=== PATIENT | female | born 1960 | race American Indian/Alaskan Native ===

== ENCOUNTER 2020-02-27 08:52 | Emergency (ER) | payer BC ==
[2020-02-27 09:20] LABS: Urine Blood 1+ (NEG); Urine Glucose NEGATIVE (NEG); Urine Protein TRACE (NEG); Urine Specific Gravity 1.025 (1.005-1.030)
[2020-02-27 09:48] LABS: Absolute Lymphocytes (CBC) 1.2 K/uL (0.7-4.9); Basophils % 0.6 % (0-1.3); Hematocrit 42.8 % (36.0-45.0); Lymphocytes % 14.7 % (15.3-44.8); MPV 8.1 fL (7.6-11.3); RBC Red Blood Cell Count 5.11 M/uL (3.86-4.86)
[2020-02-27] MEDS ORDERED: NA CHLORIDE 0.9% 1,000 ML ONE (09:56)
[2020-02-27 10:06] LABS: ALT/SGPT 25 U/L (12-78); AST/SGOT 21 U/L (15-37); Albumin 4.4 g/dL (3.4-5.0); Alkaline Phosphatase 107 U/L (45-117); BUN Blood Urea Nitrogen 7 mg/dL (7-18); Bicarbonate 26 mmol/L (21-32); Bilirubin Direct 0.2 mg/dL (0-0.2); Bilirubin Total 0.7 mg/dL (0.2-1.0); Glucose Level 153 mg/dL (74-106); Lipase 199 U/L (73-393); Magnesium 1.8 mg/dL (1.8-2.4); NT PRO-BNP 201 pg/mL (<125); Potassium 3.5 mmol/L (3.5-5.1); Protein, Total 8.3 g/dL (6.4-8.2); Sodium Level 137 mmol/L (136-145); Troponin (Emerg Dept Use Only) < 0.02 ng/mL (0.0-0.045)
[2020-02-27] MEDS ORDERED: NA CHLORIDE 0.9% 500 ML ONE (10:35)
--- NOTE | 2020-02-27 11:03 | RAD REPORT ---
EXAM DESCRIPTION: CT - Angio Aorta For Dissection - 02/27/2020 10:33 am CLINICAL HISTORY: . Chest and abdominal pain COMPARISON: None TECHNIQUE: Computed tomography angiography of the chest, abdomen pelvis were obtained. 100 cc Isovue 370 was administered intravenously. Coronal and sagittal reconstruction were performed. MIP 3D reconstruction was performed All CT scans are performed using dose optimization technique as appropriate and may include automated exposure control or mA/KV adjustment according to patient size. FINDINGS: An aortic dissection is not seen. An aortic aneurysm is not displayed. Mild narrowing of the celiac artery. Moderate narrowing involves the proximal superior mesenteric art gina. The AIDA is patent. A lung consolidation is not present. A pericardial effusion is not seen. A pleural effusion is not n oted. 6 x 4 millimeter ground-glass opacity medial left lower lobe Large gallstones. The liver,spleen, pancreas adrenals kidneys demonstrate no significant abnormality. Spondylosis involves lumbar spine resulting spinal stenosis. There no evidence diverticulitis. 3.5 centimeter apparent soft tissue structure splenic flexure of the colon IMPRESSION: Negative for an aortic dissection. Cholelithiasis 6 x 4 millimeter ground-glass opacity medial left lower lobe. If the patient is high risk then a foll owup CT chest in 6 months would be recommended for re-evaluation 3.5 centimeter apparent soft tissue structure splenic flexure of the colon. This could represent a ma ss or pseudo mass secondary to incomplete distention. Colonoscopy recommended
--- NOTE | 2020-02-27 11:14 | RAD REPORT ---
EXAM DESCRIPTION: [facility] Single View02/27/2020 9:46 am CLINICAL HISTORY: Cough FINDINGS: The small ground-glass opacity within the left lung seen on a CT scan of the same date is not visualized on this exam. Please refer to CT report for recommendation The lungs appear clear of acute infiltrate. The heart is normal size
[2020-02-27] MEDS ORDERED: FAMOTIDINE 20 MG/2 ML VIAL IV ONE (12:05)
[2020-02-27] MEDS ORDERED: dexAMETHasone 4 MG/ML VIAL ONE (12:05)
--- NOTE | 2020-02-27 12:46 | RAD REPORT ---
EXAM DESCRIPTION: US - Abdomen Exam Limited - 02/27/2020 12:33 pm CLINICAL HISTORY: Abdominal pain. COMPARISON: 02/27/2020 FINDINGS: The gallbladder wall is not thickened. Multiple gallstones. The largest is 3 cm. The common bile duct measures 8 mm. IMPRESSION: Cholelithiasis.No evidence of cholecystitis Mild dilation of the common bile duct
--- NOTE | 2020-02-27 12:48 | ER ---
Nurse's Notes [facility] Name: Venecia Russo Age: 59 yrs Sex: Female : 1960 Arrival Date: 02/27/2020 Time: 08:54 Bed 15 Private MD: Temo Cuellar V Diagnosis: Other viral pneumonia-medial left lower lobe;Diarrhea, unspecified;Cholelithiasis Presentation: 02/26 10:04 Chief complaint: Patient states: Patient reports back pain that started this prior ae4 Saturday along with loose stool and a wave a nausea. Coronavirus screen: Client denies travel out of the [place] in the last 14 days. Client presents with at least one sign or symptom that may indicate coronavirus-19. Standard/surgical mask placed on the client. Ebola Screen: Patient negative for fever greater than or equal to 101.5 degrees Fahrenheit, and additional compatible Ebola Virus Disease symptoms Patient denies travel to an Ebola-affected area in the 21 days before illness onset. Initial Sepsis Screen: Does the patient meet any 2 criteria? No. Patient's initial sepsis screen is negative. Does the patient have a suspected source of infection? No. Patient's initial sepsis screen is negative. Risk Assessment: Do you want to hurt yourself or someone else? Patient reports no desire to harm self or others. Onset of symptoms was February 24, 2020. 10:04 Acuity: PRINCE 3 ae4 10:04 Method Of Arrival: Ambulatory ae4 Triage Assessment: 10:04 General: Appears in no apparent distress. uncomfortable, Behavior is cooperative, ae4 anxious. Pain: Complains of pain in right subscapular area and right mid back Pain. EENT: No signs and/or symptoms were reported regarding the EENT system. Neuro: Level of Consciousness is awake, alert, obeys commands, Oriented to person, place, time, situation, Appropriate for age. Cardiovascular: Patient's skin is warm and dry. Respiratory: Airway is patent Respiratory effort is even, unlabored, Respiratory pattern is regular, symmetrical. Musculoskeletal: Historical: - Allergies: 10:03 No Known Allergies; ae4 - Immunization history:: Adult Immunizations up to date. - Family history:: not pertinent. - Social history:: Smoking status: Patient denies any tobacco usage or history of. Screenin:17 Abuse screen: Denies threats or abuse. Nutritional screening: No deficits noted. ae4 Tuberculosis screening: No symptoms or risk factors identified. Fall Risk None identified. Assessment: 09:50 General: Appears comfortable, Behavior is cooperative, anxious. Pain: Complains of pain ae4 in right mid back Pain radiates to right lateral anterior chest. Neuro: Level of Consciousness is awake, alert, obeys commands, Oriented to person, place, time, situation, Appropriate for age. Cardiovascular: Heart tones S1 S2 present Patient's skin is warm and dry. Rhythm is regular. Respiratory: Airway is patent Respiratory effort is even, unlabored, Respiratory pattern is regular, symmetrical. GI: Abdomen is round Bowel sounds present X 4 quads. : No signs and/or symptoms were reported regarding the genitourinary system. Urine is clear. EENT: No signs and/or symptoms were reported regarding the EENT system. Derm: No signs and/or symptoms reported regarding the dermatologic system. Musculoskeletal: Reports pain in right mid back. 09:57 Reassessment: Pt resting in bed at this time, respirations remain even and unlabored. ss Call light within reach. Lights dimmed for comfort. at bedside. 15:40 Reassessment: Patient is alert, oriented x 3, equal unlabored respirations, skin aa5 warm/dry/pink. Vital Signs: 09:22 BP 173 / 99; Pulse 80; Resp 15; Temp 98.6(O); Pulse Ox 100% on R/A; Weight 58.97 kg; mh5 Height 5 ft. 5 in. (165.10 cm); Pain 8/10; 10:04 BP 187 / 97; Pulse 71; Resp 16; Pulse Ox 100% on R/A; ae4 10:04 BP 184 / 97; Pulse 74; Resp 15; Pulse Ox 100% on R/A; ae4 11:00 BP 178 / 102; Pulse 70; Resp 16; Pulse Ox 99% on R/A; ae4 12:20 BP 171 / 95; Pulse 72; Resp 18; Pulse Ox 100% on R/A; ae4 14:00 BP 165 / 101; Pulse 87; Resp 16; Pulse Ox 99% on R/A; ae4 14:41 BP 183 / 109; Pulse 81; Resp 17; Pulse Ox 100% on R/A; ae4 15:30 BP 155 / 94; Pulse 80; Resp 16 S; Pulse Ox 100% on R/A; aa5 09:22 Body Mass Index 21.63 (58.97 kg, 165.10 cm) 5 ED Course: 08:54 Patient arrived in ED. as 08:54 Temo Cuellar MD is Private Physician. as 09:01 Sajan Chow MD is Attending Physician. radha 09:11 Konrad Cordon, RN is Primary Nurse. ae4 09:23 Patient has correct armband on for positive identification. Placed in gown. Bed in low mh5 position. Side rails up X 1. Adult w/ patient. Warm blanket given. inspector multifocal lens on. Pulse ox on. NIBP on. 09:36 CT Aorta for Dissection In Process Unspecified. EDMS 09:38 Urine Culture Sent. mh5 09:40 Inserted saline lock: 20 gauge in left antecubital area, using aseptic technique. Blood ae4 collected. 09:46 XRAY Chest (1 view) In Process Unspecified. EDMS 10:07 COVID-19 Sent. mh5 10:08 Initial lab(s) drawn, by ED staff, sent to lab. Urine collected: clean catch specimen, [facility] clear, EKG done, by ED staff, reviewed by Sajan Chow MD COVID 19 TEST. 10:11 Triage completed. ae4 10:16 Arm band placed on right wrist. EKG completed in triage. Results shown to MD. ae4 10:[address] via stretcher. ae4 12:33 US Abdomen Limited In Process Unspecified. EDMS 12:47 Temo Cuellar MD is Referral Physician. radha 12:48 Baron Rojas MD is Referral Physician. radha 15:40 No provider procedures requiring assistance completed. IV discontinued. aa5 Administered Medications: 09:47 Drug: NS 0.9% 1000 ml Route: IV; Rate: 1 bolus; Site: left antecubital; ae4 11:33 Follow up: IV Status: Completed infusion; IV Intake: 1000ml ae4 10:57 Drug: NS 0.9% 500 ml Route: IV; Rate: bolus; Site: left antecubital; ae4 11:47 Follow up: IV Status: Completed infusion; IV Intake: 500ml ae4 14:17 Drug: Zithromax 500 mg Route: IVPB; Infused Over: 1 hrs; Site: left antecubital; iw 15:30 Follow up: Response: No adverse reaction; IV Status: Completed infusion aa5 14:37 Drug: Pepcid 20 mg Route: IVP; Site: left antecubital; ae4 14:41 Follow up: Response: No adverse reaction ae4 14:38 Drug: Decadron - Dexamethasone 6 mg Route: IVP; Site: left antecubital; ae4 14:41 Follow up: Response: No adverse reaction ae4 14:41 Drug: Aspirin Chewable Tablet 81 mg Route: PO; ae4 Intake: 11:33 IV: 1000ml; Total: 1000ml. ae4 11:47 IV: 500ml; Total: 1500ml. ae4 Outcome: 12:48 Discharge ordered by . radha 15:40 Discharged to home ambulatory, with significant other. aa5 15:40 Condition: stable 15:40 Discharge instructions given to patient, Instructed on discharge instructions, follow up and referral plans. medication usage, Demonstrated understanding of instructions, follow-up care, medications. 15:46 Patient left the ED. aa5 Addendum: 02/29/2020 13:14 Addendum: COVID-19 Result: Negative result given to RN to notify pt. Left voice mail. h b 14:29 Addendum: COVID-19 Result: Negative result given to RN to notify pt. Notified pt of h b negative COVID 19 swab results. Pt advised that even with a negative test result they should remain in isolation until symptom free for 3 days without medication. Pt also advised to return to the ED for worsening symptoms. Signatures: Dispatcher [employer] EDRI Sajan Chow MD MD cha Martinez, Amelia as Williams, Irene, RN RN iw Calderon, Audri, RN RN aa5 Yajaira Washington RN RN ss Baxter, Heather, RN RN hb Martinez, Maria Konrad Lou RN RN ae4
--- NOTE | 2020-02-27 12:48 | EDPHYS ---
Physician Documentation [facility] Name: Venecia Russo Age: 59 yrs Sex: Female : 1960 Arrival Date: 02/27/2020 Time: 08:54 Bed 15 Private MD: Temo Cuellar V ED Physician Sajan Chow HPI: 02/26 09:21 This 59 yrs old Unknown Female presents to ER via Unassigned with complaints of Back radha Pain. 09:21 The patient presents with pain and decreased range of motion. The symptoms are located radha in the right subscapular area, right mid back and right low back. Onset: The symptoms/episode began/occurred 2 day(s) ago. The pain does not radiate. Associated signs and symptoms: Pertinent positives: nausea. The problem was sustained from unknown cause. Severity of symptoms: At their worst the symptoms were mild, in the emergency department the symptoms are unchanged. The patient has not experienced similar symptoms in the past. Historical: - Allergies: 10:03 No Known Allergies; ae4 - Immunization history:: Adult Immunizations up to date. - Family history:: not pertinent. - Social history:: Smoking status: Patient denies any tobacco usage or history of. ROS: 09:21 Constitutional: Negative for fever, chills, and weight loss, Eyes: Negative for injury, radha pain, redness, and discharge, ENT: Negative for injury, pain, and discharge, Neck: Negative for injury, pain, and swelling, Cardiovascular: Negative for chest pain, palpitations, and edema, Respiratory: Negative for shortness of breath, cough, wheezing, and pleuritic chest pain, : Negative for injury, bleeding, discharge, and swelling, MS/Extremity: Negative for injury and deformity, Skin: Negative for injury, rash, and discoloration, Neuro: Negative for headache, weakness, numbness, tingling, and seizure. 09:21 Abdomen/GI: Positive for diarrhea. Exam: 09:21 Constitutional: This is a well developed, well nourished patient who is awake, alert, radha and in no acute distress. Head/Face: Normocephalic, atraumatic. Eyes: Pupils equal round and reactive to light, extra-ocular motions intact. Lids and lashes normal. Conjunctiva and sclera are non-icteric and not injected. Cornea within normal limits. Periorbital areas with no swelling, redness, or edema. ENT: Nares patent. No nasal discharge, no septal abnormalities noted. Tympanic membranes are normal and external auditory canals are clear. Oropharynx with no redness, swelling, or masses, exudates, or evidence of obstruction, uvula midline. Mucous membranes moist. Neck: Trachea midline, no thyromegaly or masses palpated, and no cervical lymphadenopathy. Supple, full range of motion without nuchal rigidity, or vertebral point tenderness. No Meningismus. Chest/axilla: Normal chest wall appearance and motion. Nontender with no deformity. No lesions are appreciated. Cardiovascular: Regular rate and rhythm with a normal S1 and S2. No gallops, murmurs, or rubs. Normal PMI, no JVD. No pulse deficits. Respiratory: Lungs have equal breath sounds bilaterally, clear to auscultation and percussion. No rales, rhonchi or wheezes noted. No increased work of breathing, no retractions or nasal flaring. Abdomen/GI: Soft, non-tender, with normal bowel sounds. No distension or tympany. No guarding or rebound. No evidence of tenderness throughout. Back: No spinal tenderness. No costovertebral tenderness. Full range of motion. Female : Normal external genitalia. Skin: Warm, dry with normal turgor. Normal color with no rashes, no lesions, and no evidence of cellulitis. MS/ Extremity: Pulses equal, no cyanosis. Neurovascular intact. Full, normal range of motion. Neuro: Awake and alert, GCS 15, oriented to person, place, time, and situation. Cranial nerves II-XII grossly intact. Motor strength 5/5 in all extremities. Sensory grossly intact. Cerebellar exam normal. Normal gait. Psych: Awake, alert, with orientation to person, place and time. Behavior, mood, and affect are within normal limits. Vital Signs: 09:22 BP 173 / 99; Pulse 80; Resp 15; Temp 98.6(O); Pulse Ox 100% on R/A; Weight 58.97 kg; mh5 Height 5 ft. 5 in. (165.10 cm); Pain 8/10; 10:04 BP 187 / 97; Pulse 71; Resp 16; Pulse Ox 100% on R/A; ae4 10:04 BP 184 / 97; Pulse 74; Resp 15; Pulse Ox 100% on R/A; ae4 11:00 BP 178 / 102; Pulse 70; Resp 16; Pulse Ox 99% on R/A; ae4 12:20 BP 171 / 95; Pulse 72; Resp 18; Pulse Ox 100% on R/A; ae4 14:00 BP 165 / 101; Pulse 87; Resp 16; Pulse Ox 99% on R/A; ae4 14:41 BP 183 / 109; Pulse 81; Resp 17; Pulse Ox 100% on R/A; ae4 15:30 BP 155 / 94; Pulse 80; Resp 16 S; Pulse Ox 100% on R/A; aa5 09:22 Body Mass Index 21.63 (58.97 kg, 165.10 cm) 5 MDM: 09:02 Patient medically screened. [facility] 09:26 Differential diagnosis: Basilar Pneumonia Cholelithiasis Osteoarthritis Peptic Ulcer radha Pyelonephritis Renal Infarction sprain, Ureterolithiasis. Data reviewed: vital signs, nurses notes, lab test result(s), EKG, radiologic studies, CT scan, plain films. Data interpreted: cafeteria monitor: rate is 80 beats/min, rhythm is regular, Pulse oximetry: on room air is 100 %. Test interpretation: by ED physician or midlevel provider: ECG, plain radiologic studies. Counseling: I had a detailed discussion with the patient and/or guardian regarding: the historical points, exam findings, and any diagnostic results supporting the discharge/admit diagnosis, lab results, radiology results. 13:31 Physician consultation: Temo Cuellar MD and will see patient in office, no admit, no radha transfer. 02/26 09:18 Order name: Urine Dipstick--Ancillary (enter results); Complete Time: 09:45 em1 02/26 09:21 Order name: Basic Metabolic Panel; Complete Time: 10:07 radha 02/26 09:21 Order name: CBC with Diff; Complete Time: 10:07 radha 02/26 09:21 Order name: LFT's; Complete Time: 10:07 radha 02/26 09:21 Order name: Magnesium; Complete Time: 10:07 radha 02/26 09:21 Order name: NT PRO-BNP; Complete Time: 10:07 radha 02/26 09:21 Order name: Troponin (emerg Dept Use Only); Complete Time: 10:07 radha 02/26 09:21 Order name: XRAY Chest (1 view); Complete Time: 11:31 [facility] 02/26 09:21 Order name: Lipase; Complete Time: 10:07 [facility] 02/26 09:21 Order name: Urine Culture [facility] 02/26 09:21 Order name: CT Aorta for Dissection; Complete Time: 11:31 [facility] 02/26 09:21 Order name: COVID-19; Complete Time: 12:25 [facility] 02/26 11:35 Order name: US Abdomen Limited; Complete Time: 13:20 [facility] 02/26 09:21 Order name: EKG; Complete Time: 09:22 [facility] 02/26 09:21 Order name: Cardiac monitoring; Complete Time: 09:23 [facility] 02/26 09:21 Order name: EKG - Nurse/Tech; Complete Time: 09:24 [facility] 02/26 09:21 Order name: IV Saline Lock; Complete Time: 09:40 [facility] 02/26 09:21 Order name: Labs collected and sent; Complete Time: 09:40 [facility] 02/26 09:21 Order name: O2 Per Protocol; Complete Time: 09:40 [facility] 02/26 09:21 Order name: O2 Sat Monitoring; Complete Time: 09:40 [facility] 02/26 09:21 Order name: Urine Dipstick-Ancillary (obtain specimen); Complete Time: 09:21 [facility] Administered Medications: 09:47 Drug: NS 0.9% 1000 ml Route: IV; Rate: 1 bolus; Site: left antecubital; ae4 11:33 Follow up: IV Status: Completed infusion; IV Intake: 1000ml ae4 10:57 Drug: NS 0.9% 500 ml Route: IV; Rate: bolus; Site: left antecubital; ae4 11:47 Follow up: IV Status: Completed infusion; IV Intake: 500ml ae4 14:17 Drug: Zithromax 500 mg Route: IVPB; Infused Over: 1 hrs; Site: left antecubital; iw 15:30 Follow up: Response: No adverse reaction; IV Status: Completed infusion aa5 14:37 Drug: Pepcid 20 mg Route: IVP; Site: left antecubital; ae4 14:41 Follow up: Response: No adverse reaction ae4 14:38 Drug: Decadron - Dexamethasone 6 mg Route: IVP; Site: left antecubital; ae4 14:41 Follow up: Response: No adverse reaction ae4 14:41 Drug: Aspirin Chewable Tablet 81 mg Route: PO; ae4 Disposition: 02/27/20 12:48 Discharged to Home. Impression: Other viral pneumonia - medial left lower lobe, Diarrhea, unspecified, Cholelithiasis. - Condition is Stable. - Discharge Instructions: Food Choices to Help Relieve Diarrhea, Adult, Diarrhea, Adult, Community-Acquired Pneumonia, Adult, Cholelithiasis, Cholelithiasis, [id number], Diarrhea, Adult, [id number], Community-Acquired Pneumonia, Adult, [id number], Aspirin and Your Heart, COVID-19. - Prescriptions for Pepcid 20 mg Oral Tablet - take 1 tablet by ORAL route every 12 hours for 10 days; 20 tablet. Zithromax Z- Dash 250 mg Oral Tablet - take 1 tablet by ORAL route as directed for 5 days Day 1 - take two (2) tablets one time. Day 2, 3, 4 , 5 take one (1) tablet once daily.; 6 tablet. dexamethasone 2 mg Oral tablet - take 1 tablet by ORAL route 3 times per day; 15 tablet. Tylenol- Codeine #3 300-30 mg Oral Tablet - take 2 tablets by ORAL route every 6 hours As needed; 20 tablet. - Medication Reconciliation Form, Thank You Letter, Antibiotic Education, Prescription Opioid Use form. - Follow up: Temo Cuellar; When: 2 - 3 days; Reason: Recheck today's complaints, Continuance of care, Re-evaluation by your physician. Follow up: Baron Rojas MD; When: 2 - 3 days; Reason: Recheck today's complaints, Re-evaluation by your physician. - Problem is new. - Symptoms have improved. Signatures: Dispatcher [employer] EDMS Sajan Chow MD MD cha Williams, Irene RN RN iw Janae Flower, RN RN aa5 Konrad Cordon RN RN ae4 Corrections: (The following items were deleted from the chart) 12:48 12:48 02/27/2020 12:48 Discharged to Home. Impression: Other viral pneumonia - medial radha left lower lobe; Diarrhea, unspecified; Cholelithiasis. Condition is Stable. Discharge Instructions: Food Choices to Help Relieve Diarrhea, Adult, Diarrhea, Adult, Community-Acquired Pneumonia, Adult, Diarrhea, Adult, [id number], Community-Acquired Pneumonia, Adult, [id number], Aspirin and Your Heart, COVID-19. Prescriptions for Pepcid 20 mg Oral Tablet - take 1 tablet by ORAL route every 12 hours for 10 days; 20 tablet, Zithromax Z-Dash 250 mg Oral Tablet - take 1 tablet by ORAL route as directed for 5 days Day 1 - take two (2) tablets one time. Day 2, 3, 4 , 5 take one (1) tablet once daily.; 6 tablet. and Forms are Medication Reconciliation Form, Thank You Letter, Antibiotic Education, Prescription Opioid Use. Follow up: Temo Cuellar; When: 2 - 3 days; Reason: Recheck today's complaints, Continuance of care, Re-evaluation by your physician. Problem is new. Symptoms have improved. radha 15:46 12:48 02/27/2020 12:48 Discharged to Home. Impression: Other viral pneumonia - medial aa5 left lower lobe; Diarrhea, unspecified; Cholelithiasis. Condition is Stable. Discharge Instructions: Food Choices to Help Relieve Diarrhea, Adult, Diarrhea, Adult, Community-Acquired Pneumonia, Adult, Diarrhea, Adult, [id number], Community-Acquired Pneumonia, Adult, [id number], Aspirin and Your Heart, COVID-19. Prescriptions for Pepcid 20 mg Oral Tablet - take 1 tablet by ORAL route every 12 hours for 10 days; 20 tablet, Zithromax Z-Dash 250 mg Oral Tablet - take 1 tablet by ORAL route as directed for 5 days Day 1 - take two (2) tablets one time. Day 2, 3, 4 , 5 take one (1) tablet once daily.; 6 tablet. and Forms are Medication Reconciliation Form, Thank You Letter, Antibiotic Education, Prescription Opioid Use. Follow up: Temo Cuellar; When: 2 - 3 days; Reason: Recheck today's complaints, Continuance of care, Re-evaluation by your physician. Follow up: Dr. Baron Rojas; When: 2 - 3 days; Reason: Recheck today's complaints, Re-evaluation by your physician. Problem is new. Symptoms have improved. radha
[2020-02-27] MEDS ORDERED: AZITHROMYCIN IV 500 MG in NA CHLORIDE 0.9% 250 ML IVPB ONE (14:00)
[2020-02-27] MEDS ORDERED: ASPIRIN 81 MG CHEWABLE TABLET ONE (14:52)
[2020-02-27 15:53] VITALS: TEMP 98.6
[2020-02-27 16:01] VITALS: BP 183/109; O2SAT 100
--- NOTE | 2020-02-28 10:13 | EKG ---
Test Date: 2020-02-27 Test Time: 09:37:52 Superintendent Service: KAYLA MEASUREMENT RESULTS: Intervals: Rate: 78 NJ: 104 QRSD: 76 QT: 356 QTc: 405 Logan: P: 41 NJ: 104 QRS: 28 T: 51 INTERPRETIVE STATEMENTS: Sinus rhythm with short [place] Otherwise normal ECG No previous ECG available for comparison Electronically Signed On 02-28-20 10:10:21 BUN MACHINE OPERATOR by Frank Yeboah
== END 2020-02-27 15:46 | disposition home or self-care (01) ==
LOC: ER 08:52
DX: J12.89 Other viral pneumonia (principal); Z20.828 Contact with and (suspected) exposure to other viral communicable diseases; K80.20 Calculus of gallbladder without cholecystitis without obstruction; R19.7 Diarrhea, unspecified
CPT/HCPCS: 96365; 96361; 93005; 87088; 85025; 87086; 80048; 36415; 83735; 80076; 81003; 84484; 83690; 83880; 71275; 74175; 71045; 76705; 96375; 99285; U0002; Q9967; J1100; J0456; J7050; J7040; J7030

== ENCOUNTER 2020-03-15 08:29 | Day surgery (SDC) | payer BC ==
[2020-03-10 11:33] LABS: Absolute Lymphocytes (CBC) 1.9 K/uL (0.7-4.9); Basophils % 0.8 % (0-1.3); Hematocrit 40.1 % (36.0-45.0); Lymphocytes % 34.1 % (15.3-44.8); MPV 8.5 fL (7.6-11.3); RBC Red Blood Cell Count 4.67 M/uL (3.86-4.86)
[2020-03-10 11:47] LABS: Albumin 3.8 g/dL (3.4-5.0); Bilirubin Direct 0.1 mg/dL (0-0.2); Bilirubin Total 0.5 mg/dL (0.2-1.0); Potassium 3.6 mmol/L (3.5-5.1); Protein, Total 7.4 g/dL (6.4-8.2)
--- NOTE | 2020-03-10 12:02 | RAD REPORT ---
EXAM DESCRIPTION: RAD - Chest Pa And Lat (2 Views) - 03/10/2020 11:53 am CLINICAL HISTORY: PREOP, SAME DAY SURGERY Chest pain. COMPARISON: Chest Single View dated 02/27/2020 FINDINGS: The lungs are clear. The heart is normal in size. No displaced fractures. IMPRESSION: No acute or concerning finding suspected.
[2020-03-15] MEDS: Ringers Lactate 1,000 ML IV ONE ×2 (08:30→09:17)
[2020-03-15] MEDS: CEFOXITIN/SWI 1gm 1 GM/10 ML SYR ONE ×2 (09:17→10:00)
[2020-03-15] MEDS ORDERED: ROCURONIUM 50 MG/5 ML VIAL IV ONE (09:45)
[2020-03-15] MEDS ORDERED: FENTANYL CITR 100 MCG/2 ML ONE (09:45)
[2020-03-15] MEDS ORDERED: propofoL 200 MG/20 ML VIAL IV ONE (09:45)
[2020-03-15] MEDS ORDERED: LIDOCAINE 1% MPF 5 ML VIAL ONE (09:45)
[2020-03-15] MEDS ORDERED: MIDAZOLAM HCL 2 MG/2 ML INJ ONE (09:45)
[2020-03-15] MEDS ORDERED: EPHEDRINE SULF 50 MG/ML VIAL ONE (10:13)
[2020-03-15] MEDS ORDERED: NS 0.9% VIAL 10 ML ONE ×2 (10:14→10:29)
[2020-03-15] MEDS ORDERED: dexAMETHasone 10 MG/ML VIAL ONE (10:21)
[2020-03-15] MEDS ORDERED: KETOROLAC 30 MG/ML INJ ONE (10:21)
[2020-03-15] MEDS ORDERED: ONDANSETRON 4 MG/2 ML VIAL ONE ×2 (10:29→12:25)
[2020-03-15] MEDS ORDERED: Phenylephrine HCl 10 MG/ML 1 ML VIAL ONE (10:29)
[2020-03-15] MEDS ORDERED: GLYCOPYRROLATE 0.2 MG/ML SYR ONE (10:48)
[2020-03-15] MEDS ORDERED: NEOSTIGMINE 1 MG/ML -5 ML ONE (10:48)
[2020-03-15] MEDS: HYDROMORPHONE HCL 1 MG/ML INJ ONE ×2 (11:15→11:25)
[2020-03-15 11:16] VITALS: O2SAT 100
[2020-03-15] MEDS ORDERED: HYDROMORPHONE HCL 1 MG/ML INJ ONE (11:39)
--- NOTE | 2020-03-15 11:57 | OP ---
Date of Procedure: 03/15/2020 Surgeon: Baron Rojas MD Machine Shop Helper: JACKI Fontanez Preoperative Diagnosis: Chronic cholecystitis and cholelithiasis. Postoperative Diagnosis: Chronic cholecystitis and cholelithiasis with extensive adhesions. Procedure Performed: Laparoscopic cholecystectomy, lysis of adhesions. Estimated Blood Loss: Minimal. Specimen: Gallbladder. Findings: As above. Anesthesia: General. Complications: None. Disposition: The patient tolerated the procedure in stable condition, taken to Recovery in good gene ral condition. Procedure In Detail: The patient was brought to the OR and placed in supine position. General anest hesia begun. The patient was prepped and draped in the usual sterile fashion. Marcaine 0.5% was inf iltrated locally. A 15-blade was used to make a 1 cm supraumbilical midline incision. Subcutaneous tissue was divided. Fascia was identified and divided. A #1 Vicryl stay suture was placed. Periton eal cavity was entered with blunt dissection and then a 12 mm trocar was placed into the peritoneal c avity under direct vision. Pneumoperitoneum was established and then three 5 mm trocars were placed, 1 in the epigastrium just to the right of midline and 2 in the right subcostal region. Laparoscopy revealed extensive omental adhesions to the fundus, body, infundibulum of the gallbladder, which were taken down with sharp and blunt dissection. Bleeding was controlled with cautery and this took appr oximately 15 minutes of dissection and then the fundus was retracted superiorly. Infundibulum was id entified and retracted inferolaterally. Cystic duct and cystic artery were clearly identified with b bri dissection. Clips placed. Both structures were divided. Cautery was used to remove the gallbl adder from the liver bed. Bleeding on the liver bed was controlled with cautery. Gallbladder was re trieved through the umbilicus via an EndoCatch bag. Right upper quadrant was irrigated. Effluent wa s clear. No evidence of bleeding or bile leakage appreciated. Subsequently, all trocars were remove d under direct vision. Stay sutures were tied to each other to reapproximate the fascial defect. Galvez bcutaneous wounds were irrigated. Bleeding was controlled with cautery. A 3-0 chromic was used to r eapproximate the subcutaneous tissue and close the skin. Sterile dressing was applied. The patient was awakened and taken to Recovery in good general condition. Discharge Note: The patient will go to Day Surgery and home when stable. Disposition: Home. Condition: Stable. Discharge Instructions: Resume home medications and diet. Activity as tolerated. No heavy lifting. Remove outer dressing in 2 days. Shower. Keep wound clean and dry. Followup in my office in 2 we eks. Call for appointment. Tylenol No.3 one tablet p.o. q.4 p.r.n. pain. /MODL Voice ID: [id number] Report ID: [id number]
[2020-03-15] MEDS ORDERED: ONDANSETRON 4 MG/2 ML VIAL IV ONE (12:15)
[2020-03-15] MEDS ORDERED: PROMETHAZINE INJ 25 MG/ML AMP IV ONE (13:45)
[2020-03-15] MEDS ORDERED: PROMETHAZINE INJ 25 MG/ML AMP ONE (13:50)
[2020-03-15 14:00] VITALS: BP 150/89; TEMP 96.5
== END 2020-03-15 14:25 | disposition home health service (06) ==
LOC: OR 08:29
PROVIDERS: ATTEND Surgery
PROC: 0DNU4ZZ Release Omentum, Percutaneous Endoscopic Approach (ICD-10-PCS; 2020-03-15)
PROC: 0FT44ZZ Resection of Gallbladder, Percutaneous Endoscopic Approach (ICD-10-PCS; principal; 2020-03-15 09:30)
DX: K80.10 Calculus of gallbladder with chronic cholecystitis without obstruction (principal); K66.0 Peritoneal adhesions (postprocedural) (postinfection); Z20.828 Contact with and (suspected) exposure to other viral communicable diseases
CPT/HCPCS: 93005; 85025; 80048; 36415; 82150; 80076; 88304; 71046; 47562; 49329; U0002; J2704; J2550 ×2; J2370; J2250; J3010; J1100; J1170 ×2; J2710; J7120; J2405 ×3

== ENCOUNTER 2020-08-25 07:58 | Day surgery (SDC) | payer BC ==
[2020-08-23 14:50] LABS: Potassium 4.5 mmol/L (3.5-5.1)
[2020-08-23 15:00] LABS: Basophils % 0.5 % (0-1.3); Hematocrit 40.4 % (36.0-45.0); Lymphocytes % 33.6 % (15.3-44.8); MPV 8.7 fL (7.6-11.3); RBC Red Blood Cell Count 4.66 M/uL (3.86-4.86)
[2020-08-25] MEDS ORDERED: Ringers Lactate 1,000 ML IV ONE (08:31)
[2020-08-25] MEDS ORDERED: CEFAZOLIN/SWI 1gm 1 GM/10 ML SYR ONE (08:32)
[2020-08-25] MEDS ORDERED: propofoL 200 MG/20 ML VIAL IV ONE (09:00)
[2020-08-25] MEDS ORDERED: FENTANYL CITR 100 MCG/2 ML ONE (09:00)
[2020-08-25] MEDS ORDERED: MIDAZOLAM HCL 2 MG/2 ML INJ ONE (09:01)
[2020-08-25] MEDS ORDERED: LIDOCAINE 2% MPF 5 ML VIAL ONE (09:01)
[2020-08-25] MEDS ORDERED: LIDOCAINE 1% W/EPI 1:100,000 MDV 20 ML VIAL ONE (09:24)
[2020-08-25] MEDS ORDERED: ONDANSETRON 4 MG/2 ML VIAL ONE (09:37)
[2020-08-25] MEDS ORDERED: EPHEDRINE SULF 50 MG/ML VIAL ONE (09:38)
[2020-08-25] MEDS ORDERED: dexAMETHasone 10 MG/ML VIAL ONE (09:44)
[2020-08-25 10:12] VITALS: O2SAT 100
[2020-08-25 11:08] VITALS: TEMP 97.6
--- NOTE | 2020-08-25 11:28 | OP ---
Date of Procedure: 08/25/2020 Surgeon: Baron Rojas MD Clinical Documentation Consultant: JACKI Fontanez. Preoperative Diagnosis: Right scalp mass. Postoperative Diagnosis: Right scalp mass. Procedure: Wide excision of right scalp mass 5.5 x 4.5 cm with layered closure. Estimated Blood Loss: Minimal. Specimen: Right scalp mass. Finding: As above. Anesthesia: General. Complications: None. Disposition: The patient tolerated the procedure in stable condition and taken to Recovery in good g eneral condition. Procedure In Detail: The patient was brought to the OR and placed in supine position. General anest hesia begun. The patient was prepped and draped in the usual sterile fashion. Marcaine 0.5% was inf iltrated locally for postop pain control. A 15-blade was used to make a 5.5 x 2 cm incision. Subcut aneous tissues divided and then dissected from the surrounding tissues with sharp and blunt dissectio n. Bleeding controlled with cautery. The entire mass was excised in 1 piece and sent to pathology. Wound was irrigated. Bleeding controlled with cautery. Some excess skin was also excised to allow for a clean closure and then 3-0 chromic was used to approximate the subcutaneous tissues and 3-0 Pro alexei used to close the skin. Sterile dressing was applied. The patient was awakened and taken to Re covery in good general condition. Discharge Note: The patient will go to Day Surgery and home when stable. Disposition: Home. Condition: Stable. Discharge Instructions: Resume home medications and diet. Activity as tolerated. Remove outer dres sing in 2 days. Shower. Keep wound clean and dry. Follow up in my office in 2 weeks. Call for leena ointment. Tylenol No.3 one tablet p.o. q.4 p.r.n. pain, Keflex 500 mg p.o. q.6. /MODL Voice ID: [id number] Report ID: [id number]
[2020-08-25] MEDS ORDERED: CODEINE 30MG/APAP 300MG TAB ONE (11:35)
[2020-08-25 11:44] VITALS: BP 129/77
== END 2020-08-25 11:50 | disposition home or self-care (01) ==
LOC: OR 07:58
PROVIDERS: ATTEND Surgery
PROC: 0JB00ZZ Excision of Scalp Subcutaneous Tissue and Fascia, Open Approach (ICD-10-PCS; principal; 2020-08-25 09:00)
DX: L72.12 Trichodermal cyst (principal); Z20.822 Contact with and (suspected) exposure to COVID-19
CPT/HCPCS: 11426; 85025; 80048; 36415; 88305; U0003; J2704; J2250; J3010; J1100; J0690; J7120; J2405